=== PATIENT | female | born 1985 | race Caucasian/White ===

== ENCOUNTER 2017-05-10 07:56 | Emergency (ER) | payer BC ==
[~2017-05-10] VITALS: Ht 165.1 cm; Wt 86.1 kg
[~2017-05-10 07:56] MED LIST: ADVIL,NUPRIN,M200 MG PO; ALBUTEROL SULF8.5 GM IH; AUGMENTIN875 MG PO; CIPROFLOXACIN500 M1 PO; DAY-TIME COLD-1 EACH PO; ENDOCET 5-3251 EACH PO; FLINTSTONES1 EACH PO; IBUPROFEN800 MG PO; Motrin PO; OXYCODONE HCL5 MG PO; TAMSULOSIN HCL0.4 MG PO; TYLENOL EXTRA500 MG PO; VENTOLIN HFA18 GM IH; ZANTAC150 MG PO; ZITHROMAX Z-PA250 MG PO; ZOFRAN ODT4 MG PO; ZOFRAN8 MG PO
[2017-05-10 08:57] LABS: HEMATOCRIT 37.7 % (36.0-46.0); MCH 29.4 PG (29.0-34.0); MCHC 33.4 G/DL (30.0-36.0); MCV 87.9 FL (83-99); MEAN PLAT.VOLUME 10.9 uM^3 (9.5-12.4); PLATELET COUNT 262 K/uL (156-360); RBC DIS.WIDTH-CV 12.5 % (11.8-14.6); RED BLOOD COUNT 4.29 M/uL (3.80-5.20); WHITE BLOOD COUNT 9.8 K/uL (4.1-10.2)
[2017-05-10 09:03] LABS: ADD MIUA? YES; BILIRUBIN NEGATIVE; BLOOD LARGE; COLOR YELLOW ((YELLOW)); GLUCOSE (STRIP) NEGATIVE; KETONES NEGATIVE; LEUKOCYTES TRACE; NITRITE NEGATIVE; PROTEIN (STRIP) NEGATIVE; SPECIFIC GRAVITY 1.017 (1.000-1.030); UROBILINOGEN 0.2 MG/DL (0.2-1.0)
[2017-05-10 09:09] LABS: BACTERIA RARE /HPF; EPITHELIAL CELLS 1+ /HPF; MUCUS TRACE /LPF; RED BLOOD CELLS TNTC /HPF (0-5); UCUL ADDED? YES
[2017-05-10 10:08] LABS: ALKALINE PHOSPHATASE 52 IU/L (3-129); ANION GAP 8 MEQ/L (2-14); CHLORIDE 109 MEQ/L (99-109); GFR ESTIMATE (CALCULATED) > 59 mL/min/; GLUCOSE 69 mg/dL (70-99); POTASSIUM 3.4 MEQ/L (3.7-5.4); SAMPLE HEMOLYSIS CHECK 0; SAMPLE ICTERIC CHECK 0; SAMPLE LIPEMIA CHECK 0; SODIUM 141 MEQ/L (136-147); TOTAL BILIRUBIN 0.3 MG/DL (0.0-1.0); UREA NITROGEN (BUN) 10 mg/dL (9-23)
[2017-05-10 10:13] LABS: QUANTITATIVE HCG < 4.0 MIU/ML
[2017-05-10] MEDS ORDERED: KEFLEX500 MG PO (10:59)
[2017-05-10 11:41] VITALS: BP 103/73
== END 2017-05-10 11:42 | disposition home or self-care (01) ==
LOC: EME 07:56
PROVIDERS: Physician Assistant
DX: N12 Tubulo-interstitial nephritis, not specified as acute or chronic (principal); N20.0 Calculus of kidney; Z87.442 Personal history of urinary calculi; K21.9 Gastro-esophageal reflux disease without esophagitis; J45.909 Unspecified asthma, uncomplicated; Z87.891 Personal history of nicotine dependence
CPT/HCPCS: 74176; 80053; 81003; 84702; 85027; 87086; 99281; 99285; J0696; J1885; J2270; J2405; J7030; J7050